=== PATIENT | female | born 1985 | race Caucasian/White ===

== ENCOUNTER 2019-01-10 11:46 | Outpatient (REF) | payer BC, SELFPAY | END 2019-01-10 12:06 | LOC: LBN 11:46 | PROVIDERS: PCP Nurse Practitioner Family; Visit Provider Nurse Practitioner Family | DX: J02.9 Acute pharyngitis, unspecified (principal) | CPT/HCPCS: 87077; 87070 ==

== ENCOUNTER 2019-10-05 03:17 | Outpatient (CLI) | payer BC, SELFPAY ==
[2019-10-05 11:01] LABS: Calculated LDL 116 mg/dL (<100); Cholesterol 165 mg/dL (<200); Glucose 86 mg/dL (74-106); HDL Cholesterol 41 mg/dL (40-60); Triglyceride 40 mg/dL (<150)
== END 2019-10-05 03:37 ==
PROVIDERS: PCP Nurse Practitioner Family; Visit Provider Nurse Practitioner Family
DX: Z13.1 Encounter for screening for diabetes mellitus (principal); Z13.220 Encounter for screening for lipoid disorders
CPT/HCPCS: 36415; 80061; 82947

== ENCOUNTER 2020-10-24 13:05 | Outpatient (REF) | payer BC, SELFPAY ==
--- NOTE | 2020-10-24 15:45 | PAPFT_PTH ---
PATIENT: Valorie Morrow LOC: [facility] U#:[id number] AGE/SX: 35/F ROOM: RE10/24/[address]: Ene Hanley APRN : 1985 BED: DIS: 10/24/2020 SPEC #: [id number] RECD: 10/25/20 13:14 STATUS: ALVARO RESincere #: [id number] BART: 10/24/20 15:[address]: Ene Hanley DEPT: [facility] Cytology RECD BY: Eufemia Oliver Tissues: 1 - CX/ENDOCX FOR PAP SMEARS Procedures: PAP THIN PREP/UVM Screening HPV DNA PROBE Comments: [id number]
== END 2020-10-24 13:06 | disposition home or self-care (01) ==
LOC: LBN 13:05
PROVIDERS: PCP Nurse Practitioner Family; Visit Provider Nurse Practitioner Family
DX: Z12.4 Encounter for screening for malignant neoplasm of cervix (principal); Z11.51 Encounter for screening for human papillomavirus (HPV); Z87.410 Personal history of cervical dysplasia
CPT/HCPCS: 88142; 87624

== ENCOUNTER 2021-07-24 03:51 | Outpatient (CLI) | payer BC, SELFPAY ==
[2021-07-24 11:08] LABS: Kit/Specimen SENT
[2021-07-24 11:15] LABS: Abs Immature Grans 0.04 10^3/uL (0.0-0.06); Absolute Basophil Count 0.05 10^3/uL (0.0-0.2); Absolute Eosinophil Count 0.04 10^3/uL (0.0-0.7); Absolute Lymphocyte Count 1.79 10^3/uL (1.2-3.4); Absolute Monocyte Count 0.65 10^3/uL (0.1-0.8); Absolute Neutrophil Count 7.43 10^3/uL (1.2-6.7); Basophils % 0.5; Eosinophils % 0.4; HCT 42.2 % (36.0-46.0); HGB 14.1 g/dL (11.2-15.7); Immature Grans % 0.4; Lymphocytes % 17.9; MCH 30.1 pg (27.0-33.0); MCHC 33.4 % (32.0-36.0); MCV 90 fL (80-95); MPV 8.9 fL (8.0-11.0); Monocytes % 6.5; Neutrophils % 74.3; Platelet Count 238 10^3/uL (130-400); RBC 4.68 10^6/uL (3.93-5.22); RDW 12.6 % (11.7-14.6); RDW-SD 41.2 fL
[2021-07-24 12:16] LABS: TSH (W/Ref FT4) 0.99 uIU/mL (0.36-3.74)
[2021-07-25 10:22] LABS: Hepatitis B Surface Ag Negative (Negative)
[2021-07-25 10:45] LABS: Hepatitis C Ab w Rflx HCV PCR Negative (Negative)
[2021-07-25 11:02] LABS: HIV-1/2 Ag & Ab Screen Negative (Negative)
[2021-07-25 11:09] LABS: Varicella IgG Antibody Positive (See Note)
[2021-07-25 11:15] LABS: Rubella IgG Ab (UVM) Positive (See Note)
[2021-07-26 23:17] LABS: Syphilis IgG w/Reflex Nonreactive (Nonreactive)
[2021-07-29 03:42] LABS: Specimen WB Whole Blood
[2021-08-04 17:57] LABS: Result Summary NEGATIVE; Specimen WB Whole Blood
== END 2021-07-24 03:52 | disposition home or self-care (01) ==
PROVIDERS: Advanced Practice Midwife; PCP Nurse Practitioner Family; Visit Provider Advanced Practice Midwife
DX: Z34.91 Encounter for supervision of normal pregnancy, unspecified, first trimester (principal); Z3A.12 12 weeks gestation of pregnancy
CPT/HCPCS: 36415; 81329; 86787; 86803; 86850; 86900; 86901; 87340; 87389; 81220; 84443; 85025; 86762; 86780

== ENCOUNTER 2021-07-24 19:37 | Outpatient (REF) | payer BC, SELFPAY ==
[2021-07-24 17:02] LABS: *AMPHETAMINES SCREEN URINE Negative (Negative); *BARBITURATES SCREEN URINE Negative (Negative); *BENZODIAZEPINES SCREEN URINE Negative (Negative); Cannabinoids THC Positive (Negative); Cocaine Screen,Urine Negative (Negative); METHADONE URINE SCREEN Negative (Negative); OPIATES URINE SCREEN Negative (Negative)
[2021-07-24 17:09] LABS: Tricyclic Antidepressants Negative (Negative)
[2021-07-25 14:22] LABS: Chlamydia Result Negative (Negative); GC Result Negative (Negative)
[2021-07-31 09:07] LABS: Buprenorphine Negative ng/mL (Cutoff: 5.0); Norbuprenorphine Negative ng/mL (Cutoff: 2.5)
== END 2021-07-24 19:38 | disposition home or self-care (01) ==
LOC: LBN 19:37
PROVIDERS: PCP Nurse Practitioner Family; Visit Provider Advanced Practice Midwife
DX: Z34.91 Encounter for supervision of normal pregnancy, unspecified, first trimester (principal); Z3A.12 12 weeks gestation of pregnancy
CPT/HCPCS: 80307; 87491; 87591; 87086

== ENCOUNTER 2021-08-21 01:47 | Outpatient (CLI) | payer BC, SELFPAY | END 2021-08-21 01:48 | disposition home or self-care (01) | LOC: LBO 01:47 | PROVIDERS: PCP Nurse Practitioner Family; Visit Provider Advanced Practice Midwife ==

== ENCOUNTER 2022-02-02 04:48 | Observation (INO) | payer BC, SELFPAY ==
[2022-02-02] VITALS (12 sets, daily range): BP systolic 128–147; BP diastolic 79–91; PULSE 77–99; RESP 12–20; TEMP 36.3–36.7
--- NOTE | 2022-02-02 07:41 | PDOC.NST_ITS ---
Date of service: 02/02/22 Time of Service: 07:00 NST Evaluation Reason for NST Reasons for Nonstress Test: OTHER, SEE COMMENT Reason for NST Other: noted minimal varibility and decels via doppler per chief information officer Hedy Gestational Age Gestational Age in Weeks and Days: 40 Weeks and 1Days Test and Monitor Explained Test/Monitor Explained: Test Explained Vital Signs Blood Pressure: 138/84 Pulse: 83 Temperature: 97.7 F NST Information Date on Monitor: 02/02/22 Time on Monitor: 05: Date off Monitor: 02/02/22 Time off Monitor: 07:00 Total Time on Monitor: 98 NST Interventions: None Contraction Frequency: irritability noted NST Evaluation Patient States Movement: Present FHR Baseline: 115 Variability: Moderate 6-25 bpm Accelerations: 15x15 Decelerations: None NST Results: Reactive Note NST Note NST Reviewed and Verified by: Randa Madera
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
--- NOTE | 2022-02-02 11:08 | W.PM.PROGNOT ---
Date of Service Date of service: 02/02/22 Time of Service: 11:08 Assessment and Plan Assessment and plan (1) Elevated BP without diagnosis of hypertension: Status: Acute Assessment and plan: BP taken after prolonged spontaneous FHT decel (resolved): 143/91 147/90 on retake; pt denies GLASGOW, RUQ pain or visual changes Will draw HDP labs (2) Vaginal bleeding during , antepartum: Status: Acute Assessment and plan: No further vaginal bleeding observed or reported by pt HDP labs pending Dr. Ricketts aware of tracing status Pt continues to decline GBS screening Will reassess for vaginal bleeding via speculum exam (3) 40 weeks gestation of : Status: Acute Subjective Subjective Patient reports: no new complaints Objective Last Vital Signs Temp 97.3 F L 02/02/22 07:42 Pulse 81 02/02/22 10:35 Resp 12 02/02/22 07:42 BP 147/90 H 02/02/22 10:35 Objective Narrative Objective Narrative: Category 1 tracing since 05, At 1030 FHT dropped to 60-70 bpm and remained for 2 minutes before returning to baseline Altogether 4 minute decel x1, resolved with maternal position change Has resumed category 1 status since then
[2022-02-02 11:19] LABS: HCT 43.7 % (36.0-46.0); HGB 14.8 g/dL (11.2-15.7); MCH 31.7 pg (27.0-33.0); MCHC 33.9 % (32.0-36.0); MCV 94 fL (80-95); Platelet Count 178 10^3/uL (130-400); RBC 4.67 10^6/uL (3.93-5.22); RDW-SD 44.2 fL; WBC 12.83 10^3/uL (4.4-10.8)
[2022-02-02 11:34] LABS: ALT 47 U/L (14-59); AST 37 U/L (15-37); Albumin 2.9 g/dL (3.4-5.0); Alkaline Phosphatase 133 U/L (46-116); Anion Gap 8.9 mmol/L (3-11); BUN 7 mg/dL (7-18); Bilirubin, Total 0.6 mg/dL (0.2-1.0); CO2 23.1 mmol/L (21.0-32.0); CREATININE 0.7 mg/dL (0.55-1.02); Calcium 9.5 mg/dL (8.5-10.1); Chloride 103 mmol/L (98-107); Estimated GFR 116.31 (mL/min/1.73m2); Glucose 101 mg/dL (74-106); Potassium 3.5 mmol/L (3.5-5.1); Sodium 135 mmol/L (136-145); Total Protein 6.9 g/dL (6.4-8.2)
[2022-02-02 11:43] LABS: COMMENT (LAB VIEW ONLY) 24.91 mg/dL; PROTEIN < 6.0 mg/dL
--- NOTE | 2022-02-02 16:28 | W.POCUS ---
Pocus Exam Limited OB Exam DATE OF EXAM:: 02/02/22 TIME OF EXAM:: 16:45 PROVIDER THAT PERFORMED THE STUDY: Randa Madera IS THIS A REPEAT EXAM DURING THIS ENCOUNTER: No Type of Exam: Pelvic OB Trans Abdominal (Transabdominal @ 40 weeks) REASON FOR EXAM: Vaginal Bleeding and other indication: deceleration during monitoring Exam Complete. DIFFERENTAL DIAGNOSES: QIAAN=10.0 SDP=4 cm
--- NOTE | 2022-02-02 17:12 | DSE_ITS ---
Date of service: 02/02/22 Time of Service: 17:12 DS: Diagnosis Discharge Diagnosis (1) Elevated BP without diagnosis of hypertension: Status: Acute (2) Vaginal bleeding during , antepartum: Status: Acute (3) 40 weeks gestation of : Status: Acute Discharge Plan Disposition Patient Disposition: Home Condition: Good Discharge Details Reason For Visit: vaginal bleeding at 40 wks Admit Date/Time: 02/02/22 04:48 Admit Provider: Hedy Ricketts Attending Provider: Hedy Ricketts Primary Care Provider: Ene Hanley Hospital Course Hospital Course: prolonged monitoring, lab work nml, no further bleeding, plan to transfer to [facility] for hospital plan Home Meds and New Rx's Prescriptions: No Action marijuana Inhalation Label Comments: for spastic diplegia prenat.vits,bhanu,roq-ztws-epvfv Tablet 1 tab PO DAILY Qty: 90 3RF Discharge Instructions Additional Instructions: Office will call to make paradichlorobenzene machine operator appt in [facility] for this Thursday, schedule next NST for this Thursday, call or return to center for any bleeding or unusual pain, or sx labor Stand Alone Forms: Center Observation Activity:: Activity as Tolerated Equipment/Supplies:: No Equipment Needed Diet:: Normal Diet Discharge Orders Discharge Orders: Discharge Order (Routine); Ordered 02/02/22 Ordered By: Randa Madera OB:DS Summary Contraception Discussed Contraception Discussed: No, Status at Discharge Functional status at discharge: independent ambulation Overall status at discharge: patient is back to baseline Mental Status: mental status grossly normal Speech and Movement: speech and movement normal and speech clear Mood: congruent mood Affect: normal affect Exam Physical Exam Vital signs: Temp Pulse Resp BP 98.1 F 98 H 20 130/82 02/02/22 16:18 02/02/22 16:18 02/02/22 16:18 02/02/22 16:18 Vital Signs Reviewed: Yes Constitutional Constitutional: no acute distress, average body habitus and cooperative HEENT Exam HEENT Exam: Normal Neck Exam Neck Exam: Normal Respiratory Exam Respiratory Exam: Normal Cardiovascular Exam Cardiovascular Exam: Normal Rectal Exam Rectal Exam: Normal Back/Spine/Pelvis Exam Back Exam: Normal Skin Exam Skin Exam: Normal Neurological Exam Neurological Exam: Normal Psychiatric Exam Psychiatric Exam: Normal (Pt accompanied by LM, opted to stay in the car in parking lot to wait for updates) PFSH All Active Problems (Updated 02/02/22 @ 11:12 by Randa Madera) Elevated BP without diagnosis of hypertension (Acute) Rh negative status during in third trimester (Acute) 40 weeks gestation of (Acute) Vaginal bleeding during , antepartum (Acute) Hyperlipidemia, unspecified (Acute) Medical marijuana use (Chronic) Spastic diplegia (Chronic) Related to premature (28 wks); mostly left leg but also right; residual difficulty with ambulating; s/p (L) heel cord lengthening (1999) Medical History (Updated 02/02/22 @ 11:12 by Randa Madera) NIDHI I (cervical intraepithelial neoplasia I) 01/24/2015 colposcopy; normal subsequent pap/HPV 01/04/2016, 04/03/2017 (see [facility] into chart) Positive test Surgical History S/P bunionectomy Left foot Tight heel cords, acquired, bilateral lengthening in 1999 other multiple tight ligaments Family History (Updated 07/24/21 @ 09:36 by Joseline Dickinson CNM) Father Alive and well Hypertension Hyperlipidemia Mother Alive and well Paternal Grandmother Lung cancer Smoker Cancer Maternal Grandfather Prostate cancer Cancer Paternal Grandfather Cancer Social History (Updated 01/01/22 @ 10:42 by Yi Palma RN) Smoking/Tobacco Use Status: Never Second Hand Exposure: Yes Smoking risk assessment performed?: Yes Alcohol Intake: never Substance use type: marijuana Adopted: No Caregiver/Support person: No Foster care: No Household members: spouse Housing: house Number of Children: 1 Communication Needs: None Education Level: master's degree Do you need help understanding health information?: Rarely 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 Pets and animals: Yes Pets and animals: cat(s) Sexually active: Yes Do you think of yourself as: straight/heterosexual Current gender identity: female What is your relationship status?: How often do you talk on the phone with friends or family?: once per week How often do you get together with friends or relatives?: twice per week How often do you attend adventist or zoroastrianism services?: decline to answer Do you belong to any clubs or organized social groups?: no Panel score (0-1 are the most socially isolated patients): 2 What type of physical activity do you participate in: walking Duration: 15-30 minutes/day Frequency: 1-2 times per week Yumiko/Jain: Tenriism Special yumiko needs: No Seatbelt use: always Helmet use: Yes Drive intox or ride w/intox electric lift truck driver: No Water heater temp set <120 deg: Yes Working smoke detector in home: Yes Fire extinguisher in home: Yes Carbon monox detector in home: Yes Firearms in home: No Do you feel safe at home: Yes Additional Social history: Master's in Education History History 1 Para 0 Hx # Term Pregnancies 0 Multiple births 0 Hx # Pregnancies 0 Ectopic pregnancies 0 AB induced 0 Hx Number of Living Children 0 AB spontaneous 0 DS: Data Vitals/I&O Vitals and I&O: Vital Signs Temperature 98.1 F 02/02/22 16:18 Pulse 98 H 02/02/22 16:18 Pulse Rhythm Regular 02/02/22 16:18 Respiratory Rate 20 02/02/22 16:18 Blood Pressure 130/82 02/02/22 16:18 Blood Pressure Mean 98 02/02/22 16:18 Oxygen Delivery Method Room Air 02/02/22 16:18 Oxygen Flow Rate 0 02/02/22 16:18 Pain Level 0 02/02/22 16:18 Intake & Output 02/01/22 02/02/22 02/02/22 23:59 11:59 23:59 Output Total 940 / 1740 800 / 1740 Balance -940 / -1740 -800 / -1740 Weight 141 lb 1.533 oz Output: Urine 940 / 1740 800 / 1740 Other: Urine Color Pale Data Completed and Pending Labs on day of discharge: Labs from last 24 hours 02/02/22 02/02/22 02/02/22 11:08 11:08 07:55 WBC 12.83 H RBC 4.67 Hgb 14.8 Hct 43.7 MCV 94 MCH 31.7 MCHC 33.9 RDW 13.0 Plt Count 178 MPV 10.0 Sodium 135 L Potassium 3.5 Chloride 103 Carbon Dioxide 23.1 Anion Gap 8.9 BUN 7 Creatinine 0.7 Est GFR (CKD-EPI 2020) 116.31 Glucose 101 Calcium 9.5 Total Bilirubin 0.6 AST 37 ALT 47 Alkaline Phosphatase 133 H Total Protein 6.9 Albumin 2.9 L Ur Random Creatinine 24.91 U Random Total Protein < 6.0 U Regina Prot/Creat Ratio
--- NOTE | 2022-02-02 17:33 | NUR.NOTE ---
Nursing Note: Assessment done pt denies ringing in the ears, visual disturbances, headache, reflexes 1+bracial and 2+patellar
== END 2022-02-02 17:15 | disposition home or self-care (01) ==
PROVIDERS: Advanced Practice Midwife; Admitting Provider Obstetrics & Gynecology; PCP Nurse Practitioner Family; Visit Provider Obstetrics & Gynecology
DX: O46.93 Antepartum hemorrhage, unspecified, third trimester (principal); Z3A.40 40 weeks gestation of pregnancy; O99.323 Drug use complicating pregnancy, third trimester; F12.90 Cannabis use, unspecified, uncomplicated; O36.8330 Maternal care for abnormalities of the fetal heart rate or rhythm, third trimester, not applicable or unspecified; R03.0 Elevated blood-pressure reading, without diagnosis of hypertension
CPT/HCPCS: 80053; 85027; 82565; 84156; G0378

== ENCOUNTER 2022-02-03 19:59 | Inpatient (IN) | payer BC, SELFPAY ==
[2022-02-03] VITALS (9 sets, daily range): BP systolic 135–169; BP diastolic 69–88; PULSE 107–131; RESP 20; TEMP 36.4
--- NOTE | 2022-02-03 20:59 | W.PM.OBHPL1 ---
Date of service: 02/03/22 Time of Service: 20:59 Assessment and Plan Assessment and plan (1) Uterine contractions: Status: Acute Assessment and plan: 1. Admit and do routine and pre-eclampsia labs 2. Discussed preferrence of this provider is to have IV access due to recent admission and observation for vaginal bleeding with unknown etiology, patient considering 3. Will support labor and NVD, water if patient prefers as FHR tracing is CAT I and she is not having active bleeding at this time. (2) Amniotic fluid leaking: Status: Acute Assessment and plan: 1. SROM at 1930 after contractions began at 1100 today, clear fluid, no odor. Plan to avoid VE as much as possible 2. Will monitor temperature hourly. MAGY OB-HPI Labor/Delivery History of Present Illness Reason for Visit: RULE OUT LABOR Chief Complaint: Uterine Contractions; Suspected Rupture of Membranes , Associated Signs and Symptoms of Suspected ROM: leaking large amounts of clear fluid mixed with normal bloody show. CAROLEE Calculator Estimated Delivery Date Method Current WG Current Estimate 02/01/22 LMP (Certain) 40w 2d Other Estimates 02/01/22 Ultrasound #1 40w 2d History of Present Expected Delivery Route/Plan - CNM FOB/ - Rony Morrow (first child) BG Declines GBS screen or ATB, accepts 48 hr obs for baby Specific Issues/Plan 1. Valorie and partner unvaccinated and decline vaccine 2. Considering home . 2a. Transfer back to [facility] midwifery service at 40 wks d/t vag bleed & borderline BP readings 3. Medical marijuana use 4. SMA/CF neg, cfDNA low prob x5, female fetus 5. Declines GBS screen Assessment: Other ( history from [facility] and [facility] is in chart. MAGY) Informed Consent Informed Consent: Other (discussed IV access, patient considering. NVD reviewed and waterbirth discussed, patient desires tub use. MAGY) Review of Systems All systems reviewed & are unremarkable except as noted in HPI and below PFSH All Active Problems (Updated 02/03/22 @ 21:11 by Joseline Dickinson CNM) Amniotic fluid leaking (Acute) Uterine contractions (Acute) Elevated BP without diagnosis of hypertension (Acute) Rh negative status during in third trimester (Acute) 40 weeks gestation of (Acute) Vaginal bleeding during , antepartum (Acute) Hyperlipidemia, unspecified (Acute) Medical marijuana use (Chronic) Spastic diplegia (Chronic) Related to premature (28 wks); mostly left leg but also right; residual difficulty with ambulating; s/p (L) heel cord lengthening (1999) Medical History NIDHI I (cervical intraepithelial neoplasia I) 01/24/2015 colposcopy; normal subsequent pap/HPV 01/04/2016, 04/03/2017 (see [facility] records scanned into chart) Positive test Surgical History S/P bunionectomy Left foot Tight heel cords, acquired, bilateral lengthening in 1999 other multiple tight ligaments Family History Father Alive and well Hypertension Hyperlipidemia Mother Alive and well Paternal Grandmother Lung cancer Smoker Cancer Maternal Grandfather Prostate cancer Cancer Paternal Grandfather Cancer Social History Smoking/Tobacco Use Status: Never Second Hand Exposure: Yes Smoking risk assessment performed?: Yes Alcohol Intake: never Substance use type: marijuana Adopted: No Caregiver/Support person: No Foster care: No Household members: spouse Housing: house Number of Children: 1 Communication Needs: None Education Level: master's degree Do you need help understanding health information?: Rarely 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 Pets and animals: Yes Pets and animals: cat(s) Sexually active: Yes Do you think of yourself as: straight/heterosexual Current gender identity: female What is your relationship status?: How often do you talk on the phone with friends or family?: once per week How often do you get together with friends or relatives?: twice per week How often do you attend scientology or taoism services?: decline to answer Do you belong to any clubs or organized social groups?: no Panel score (0-1 are the most socially isolated patients): 2 What type of physical activity do you participate in: walking Duration: 15-30 minutes/day Frequency: 1-2 times per week Yumiko/Restorationist: Scientology Special yumiko needs: No Seatbelt use: always Helmet use: Yes Drive intox or ride w/intox concrete mixer truck driver: No Water heater temp set <120 deg: Yes Working smoke detector in home: Yes Fire extinguisher in home: Yes Carbon monox detector in home: Yes Firearms in home: No Do you feel safe at home: Yes Additional Social history: Master's in Education History History 1 Para 0 Hx # Term Pregnancies 0 Multiple births 0 Hx # Pregnancies 0 Ectopic pregnancies 0 AB induced 0 Hx Number of Living Children 0 AB spontaneous 0 Meds Allergies and Home Medications Allergies Allergy/AdvReac Type Severity Reaction Status Date / Time cefaclor [From [facility]] Allergy Mild rash Verified 02/03/22 21:07 Home Medications Medication Instructions Recorded Confirmed Type marijuana inhalation PRN Pain 12/24/17 01/01/22 History prenat.vits,bhanu,[id number] 1 tab PO DAILY #90 tabs 06/27/21 02/03/22 Rx Exam Constitutional Constitutional: mild distress (working well with contractions, , Rony is supportive but anxious) and average body habitus Detailed Labor and Delivery Exam Alberto Score: Cervical Points Exam 0 1 2 3 Dilation Closed 1-2cm 3-4 cm 5-6cm Effacement 0-30% 40-50% 60-70% 80% Consistency Firm Medium Soft Station -3 -2 -1,0 +1,+2 Position Posterior Mid Anterior Contraction Frequency(min): 2 min Contraction Duration(sec): 40-60 sec Contraction Intensity: Moderate/Strong Comments: VE is deferred, patient was 1 cm on 02/02. She prefers to avoid VE due to ROM and her desire to avoid antibiotics despite not knowing GBS status. She declines GBS testing and IV antibiotics, is aware of GBS disease of and its risks. KH Fetus A Heart Rate Baseline: 145 Monitor Accelerations: 10 X 10 Monitor Decelerations: None Variability: Moderate (6-25 BPM) Categories: Category I Est. Weight: 7 lb Date of Membrane Rupture: 02/03/22 Time of Membrane Rupture: 19:30 HEENT Exam HEENT Exam: Normal Neck Exam Neck Exam: Normal (visual exam is normal) Chest/Brest/Axilla Exam Chest Exam: Normal Breast Exam Breast Exam: Not Done Respiratory Exam Respiratory Exam: Normal Cardiovascular Exam Cardiovascular Exam: Normal (awaiting inital BP at this time, due to recent elevations will draw Pre-eclampsia labs) Abdominal Exam Abdominal Exam: Normal (gravid, size equals dates, fundus is soft between contractions and non tender) Exam Exam: Normal (leaking clear fluid and small amount of bloody show, VE deferred at this time per patient request) Extremities Exam Extremities Exam: Abnormal (patient has spastic diplegia which causes extremities to be tight and gait to be affected) Back/Spine/Pelvis Exam Back Exam: Not Done Pelvis Adequate: Yes (per initial OB visit) Skin Exam Skin Exam: Normal Neurological Exam Neurological Exam: Normal (spastic diplegia noted) Psychiatric Exam Psychiatric Exam: Normal Results Results Group Beta Strep: Not Done (patient declines testing or antibiotics as prophylaxis) Blood Type: O- Rubella Status: Immune Varicella Immunity: Immune Lab Results: Panorama low risk results, female gender, GC CT negative, Hep B/C and HIV neg, Syphilis neg Risk Assessment Risk for Shoulder Dystocia Historical/Initial OB: NEGATIVE FOR: Pelvic Abnormality, Pre- BMI>30, Previous Shoulder Dystocia or Previous Macrosomia 40 Weeks: NEGATIVE FOR: EFW> 4500 gms, Maternal Weight Gain >40lb or Post Dates Date/Initial: 07/24/21 Delivery Plan @ 40 wks: NVD. BHATTI Risk for Pre-Eclampsia Yes, if one or more: NEGATIVE FOR: Hx Pre-E/Gest HTN, Chronic HTN, Multiple Gestation, Pre-gestational DM, Renal Disease, Systemic Lupus or APA Syndrome Yes, if 2 or more: POSITIVE FOR: Nulliparity; NEGATIVE FOR: Age>= 35 yrs, >10yr btwn pregnancies, BMI>30, ethinicty, Mother/Sister w/ Pre-E or Previous IUGR Risk for Post- Hemorrhage Initial: NEGATIVE FOR: Multiple Gestation, Previous PPH, Known Clotting Deficiency, Grand Multiparity or Anticoagulation At Risk?: Yes (recent bleeding episode of unknown etiology, IV access requested ) Date/Initials: 02/03/22 Risks Reviewed Risks Reviewed Upon Admission: Yes
[2022-02-03 21:22] LABS: HCT 42.5 % (36.0-46.0); HGB 14.6 g/dL (11.2-15.7); MCH 32.1 pg (27.0-33.0); MCHC 34.4 % (32.0-36.0); MCV 93 fL (80-95); Platelet Count 210 10^3/uL (130-400); RBC 4.55 10^6/uL (3.93-5.22); RDW-SD 44.7 fL; WBC 16.16 10^3/uL (4.4-10.8)
[2022-02-03 21:35] LABS: LDH 143 U/L (81-234); Uric Acid 4.5 mg/dL (2.6-6.0)
[2022-02-03 21:36] LABS: ALT 40 U/L (14-59); AST 34 U/L (15-37); Alkaline Phosphatase 134 U/L (46-116); Anion Gap 10.6 mmol/L (3-11); BUN 11 mg/dL (7-18); Bilirubin, Total 0.6 mg/dL (0.2-1.0); CO2 21.4 mmol/L (21.0-32.0); CREATININE 0.7 mg/dL (0.55-1.02); Calcium 9.3 mg/dL (8.5-10.1); Chloride 101 mmol/L (98-107); Estimated GFR 116.31 (mL/min/1.73m2); Glucose 119 mg/dL (74-106); Potassium 3.5 mmol/L (3.5-5.1); Sodium 133 mmol/L (136-145); Total Protein 7.1 g/dL (6.4-8.2)
--- NOTE | 2022-02-03 23:29 | OBVDS_ITS ---
Date of service: 02/03/22 Time of Service: 23:29 OB Labor/ Delivery Information Baby A Delivery Delivery Method: Spontaneaous Presentation: Cephalic Cephalic Position: Vertex Vertex Position: Left Occipital Anterior Cord Description-Baby A: 3 Vessels and Clamped/Cut Estimated Blood Loss: 300 Delivery Outcome: Liveborn Complications: none Note: Valorie presented in active labor as noted by regular strong contractions and maternal response to contractions. Venancio came to deliver at [facility] after having seen Hedy Goldstein CPM for most of her due to vaginal bleeding on Friday 02/02 which resolved spontaneously. She began having regular contractions 02/03 at 1100 and had SROM for clear fluid at 1930 on 02/03. She declined vaginal examination on arrival sighting her choice to not receive GBS testing or prophylaxis and avoiding exam decreased her risks to her baby She agreed to initial EFM tracing and after a 20-30 minute tracing which was CAT I she requested to move to birthing tub due to involuntary urge to push. She continued to have excellent expulsive efforts over the next hour and progressed to . FHT's remained 140's throughout. Baby girl Keya delivered DOROTHEA over intact perineum at 2244. She was brought up so her face was above water and rested on maternal legs while awaiting for cord to cease pulsing. Cord was double clamped and cut by FLAVIO Knott and baby was moved to radiant warmer while Valorie was transferred out of tub to bed. Placenta delivered intact via galaviz mechanism at 2315 with gentle traction and uterine massage. EBL 300cc. Perineum is intact, there is slight abrasion on labia bilaterally but they are hemostatic and left unrepaired. Baby had 9/9 scores. She is attempting to breast feed. Venancio are aware that due to unknown GBS status and no GBS prophylaxis it is likely that they will be staying 48-72 hours for assessments. Positive family bonding is noted. Unknown contraception plan at this time. VS area stable. Baby's weight 6lb 10.88oz. Expect normal PP course with likely having PP follow up with her home laboratory aide. Providers Nurse Car Tracer: Joseline Dickinson Nurse: Loren Olmstead Nurse: Jessica Benjamin Other: Home Car Tracer Hedy Oakes in attendance Labor/Delivery Information Number of Babies in Womb: 1 Steroids Given: None Reason Steroids Not Administered: N/A Group Beta Strep: Not Done Antibiotics Administered: No Rubella Status: Immune Blood Type: O- Varicella Immunity: Immune Maternal Complications: None Shoulder Dystocia: No Stages of Labor Onset of Labor Date: 02/03/22 Onset of Labor Time: 11:00 Complete Dilatation Date: 02/03/22 Complete Dilatation Time: 21:50 Labor - Stage 1 Duration: 10 hours and 50 minutes ROM Baby A: 02/03/22 ROM Baby A: 19:30 ROM Total Time- Baby A: [id number] Infant Delivery Date-Baby A: 02/03/22 Infant Delivery Time-Baby A: 22:44 Labor Stage 2 Duration: 54 minutes Placenta Delivery Date-Baby A: 02/03/22 Placenta Delivery Time-Baby A: 23:15 Labor-Stage 3 Duration: 31 minutes Total Length of Labor-Baby A: 11 hours and 44 minutes Placenta Cultured: No Placenta Status: Delivered Baby A Gender: Female Gestational Status: Term (39-41.6 wks) Gestational Age in Weeks/Days: 40 Weeks and 2 Days Score-1 Minute Interval(Baby A) Heart Rate-1 minute: 100 BPM or Greater Respiratory Effort- 1 minute: Spontaneous/Strong Cry Muscle Tone-1 minute: Active Movement Reflex Response-1 minute: Prompt Response Color-1 minute: Bluish Hands or Feet Total Score-1 minute: 9 Score-5 Minute Interval(Baby A) Heart Rate- 5 minute: 100 BPM or Greater Respiratory Effort-5 minute: Spontaneous/Strong Cry Muscle Tone-5 minute: Active Movement Reflex Response-5 minute: Prompt Response Color-5 minute: Bluish Hands or Feet Total Score- 5 minute: 9
[2022-02-04] VITALS (7 sets, daily range): BP systolic 132–164; BP diastolic 72–90; PULSE 85–113; RESP 16–18; TEMP 36.7
--- NOTE | 2022-02-04 08:48 | NUR.NOTE ---
Hedy home detective homicide squad at bedside to discuss MD recommendations with patient and FOBNursing Note:
[2022-02-04] MEDS: Hamamelis Leaf/Glycerin 100 EACH BOX PR (09:34)
[2022-02-04] MEDS: Ibuprofen 600 MG TAB PO (09:55)
--- NOTE | 2022-02-04 10:05 | OBPPV_ITS ---
Date of service: 02/04/22 Time of Service: 07:10 Assessment and Plan Assessment and plan (1) care following vaginal delivery: Status: Acute Assessment and plan: 1. Continue present management 2. Will reassess in 24 hours or prn, encouraged stay for 48 hour evaluation due to GBS unknown status and now baby having + Carmen test result. MAGY (2) Lactating mother: Status: Acute Assessment and plan: 1. Continue present management. MAGY (3) Elevated BP without diagnosis of hypertension: Status: Acute Assessment and plan: 1. Elevated BP over night of 157/79 with normal lab assessment for Pre-eclampsia and no reported signs or symptoms of pre-eclampsia, patient has deferred VS this morning due to her stress related to potential need to stay longer than she wishes due to her unknown GBS status and Carmen + status of baby affecting her care. Will reassess when allowed. MAGY Subjective Subjective Interval history: Home Energy Inspector rounded on patient who is doing well but was hopeful that Pediatrics would allow her to have short interval discharge with her Home M Exam Physical Exam Vital signs: Temp Pulse Resp BP 98.1 F 86 16 157/79 H 02/04/22 04:59 02/04/22 04:59 02/04/22 04:59 02/04/22 04:59 Vital Signs Reviewed: Yes Narrative: Morning VS are pending as patient has requested a period of no interruptions due to concern for potential need to stay longer than she had hoped for due to baby having + Carmen test today. Denies any signs of pre-eclampsia. Constitutional Constitutional: no acute distress, mild distress (over concern for longer stay and baby's well being), average body habitus and cooperative HEENT Exam HEENT Exam: Normal Neck Exam Neck Exam: Normal (normal visual inspection) Respiratory Exam Respiratory Exam: Normal Cardiovascular Exam Cardiovascular Exam: Normal Abdominal Exam Abdomen: Other (normal exam) Fundal Exam Fundus: Below Umbilicus and Firm Comment: small lochia noted. Rectal Exam Rectal Exam: Not Done Exam Perineum: Intact and Normal Extremities Exam Extremity Exam: Normal (denies calf tenderness) and Full ROM Back/Spine/Pelvis Exam Back Exam: Normal Skin Exam Skin Exam: Normal Neurological Exam Neurological Exam: Normal Psychiatric Exam Psychiatric Exam: Normal Results Hemoglobin/Hematocrit: Hgb 14.6 g/dL (11.2-15.7) 02/03/22 21:10 Hct 42.5 % (36.0-46.0) 02/03/22 21:10 Abnormal Lab Findings: Abnormal Labs 02/03/22 02/03/22 21:10 21:10 WBC 16.16 H Sodium 133 L Glucose 119 H Alkaline Phosphatase 134 H Albumin 3.0 L
[2022-02-05 07:40] VITALS: BP 133/84; PULSE 89; RESP 14; TEMP 36.3
--- NOTE | 2022-02-05 10:00 | W.PM.OBDISCH ---
Date of service: 02/05/22 Time of Service: 10:01 DS: Diagnosis Discharge Diagnosis (1) care following vaginal delivery: Status: Acute Asessment and Plan: Valorie is very anxious to go home at 36 hours post . She declines serum bilirubin as recommended by Pediatrci providers. She is caring for baby independently. Pain is managed well with oral analgesics. Voiding without difficulty. well. A - stable mother and baby , Post day 2 P - Discharge to home. Routine post instructions. Follow up for post partume care with her hull molder. (2) Lactating mother: Status: Acute Asessment and Plan: Irena Yañez visited Valorie and provided instructions (3) Elevated BP without diagnosis of hypertension: Status: Acute Discharge Plan Disposition Patient Disposition: Home Condition: Good Discharge Details Reason For Visit: Labor at Term Admit Date/Time: 02/03/22 20:56 Admit Provider: Joseline Dickinson Attending Provider: Joseline Dickinson Primary Care Provider: Ene Hanley Home Meds and New Rx's Prescriptions: No Action marijuana Inhalation PRN (Reason: Pain) Label Comments: for spastic diplegia prenat.vits,bhanu,[id number] Tablet 1 tab PO DAILY Qty: 90 3RF Discharge Instructions Stand Alone Forms: BC Instructions, BC Post Vaginal Deliver Activity:: Activity as Tolerated Equipment/Supplies:: No Equipment Needed Diet:: As Tolerated Discharge Orders Discharge Orders: Discharge Order (Routine); Ordered 02/05/22 Ordered By: Joseline Wilks OB:DS Summary Summary Vaginal Delivery Method: Spontaneaous Episiotomy Description: None Laceration Description: None Laceration Extension: N/A Contraception Discussed Contraception Discussed: No (will disciss with her hull molder), Zoe Infant Gender-Baby A: Female weight: 6 lb 10.88 oz Status at Discharge Functional status at discharge: independent ambulation Overall status at discharge: patient is back to baseline Mental Status: mental status grossly normal Speech and Movement: speech and movement normal Mood: congruent mood Affect: normal affect Exam Physical Exam Vital signs: Temp Pulse Resp BP 97.3 F L 89 14 133/84 02/05/22 07:40 02/05/22 07:40 02/05/22 07:40 02/05/22 07:40 Respiratory Exam Respiratory Exam: Normal Cardiovascular Exam Cardiovascular Exam: Normal Fundal Exam Fundus: Below Umbilicus and Firm Extremities Exam Extremity Exam: Normal Skin Exam Skin Exam: Normal Psychiatric Exam Psychiatric Exam: Normal PFSH All Active Problems (Updated 02/04/22 @ 10:09 by Joseline Dickinson CNM) Lactating mother (Acute) care following vaginal delivery (Acute) Elevated BP without diagnosis of hypertension (Acute) Hyperlipidemia, unspecified (Acute) Medical marijuana use (Chronic) Spastic diplegia (Chronic) Related to premature (28 wks); mostly left leg but also right; residual difficulty with ambulating; s/p (L) heel cord lengthening (1999) Medical History (Updated 02/04/22 @ 10:09 by Joseline Dickinson CNM) 40 weeks gestation of Amniotic fluid leaking NIDHI I (cervical intraepithelial neoplasia I) 01/24/2015 colposcopy; normal subsequent pap/HPV 01/04/2016, 04/03/2017 (see [facility] scanned into chart) Positive test Rh negative status during in third trimester Uterine contractions Vaginal bleeding during , antepartum Surgical History S/P bunionectomy Left foot Tight heel cords, acquired, bilateral lengthening in 1999 other multiple tight ligaments Family History Father Alive and well Hypertension Hyperlipidemia Mother Alive and well Paternal Grandmother Lung cancer Smoker Cancer Maternal Grandfather Prostate cancer Cancer Paternal Grandfather Cancer Social History Smoking/Tobacco Use Status: Never Second Hand Exposure: Yes Smoking risk assessment performed?: Yes Alcohol Intake: never Substance use type: marijuana Adopted: No Caregiver/Support person: No Foster care: No Household members: spouse Housing: house Number of Children: 1 Communication Needs: None Education Level: master's degree Do you need help understanding health information?: Rarely 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 Pets and animals: Yes Pets and animals: cat(s) Sexually active: Yes Do you think of yourself as: straight/heterosexual Current gender identity: female What is your relationship status?: How often do you talk on the phone with friends or family?: once per week How often do you get together with friends or relatives?: twice per week How often do you attend denominational or episcopalian services?: decline to answer Do you belong to any clubs or organized social groups?: no Panel score (0-1 are the most socially isolated patients): 2 What type of physical activity do you participate in: walking Duration: 15-30 minutes/day Frequency: 1-2 times per week Yumiko/Taoist: Yarsanism Special yumiko needs: No Seatbelt use: always Helmet use: Yes Drive intox or ride w/intox armored car guard and driver: No Water heater temp set <120 deg: Yes Working smoke detector in home: Yes Fire extinguisher in home: Yes Carbon monox detector in home: Yes Firearms in home: No Do you feel safe at home: Yes Do you feel safe in your relationship?: Yes Additional Social history: Master's in Education History History 1 Para 0 Hx # Term Pregnancies 0 Multiple births 0 Hx # Pregnancies 0 Ectopic pregnancies 0 AB induced 0 Hx Number of Living Children 0 AB spontaneous 0 DS: Data Vitals/I&O Vitals and I&O: Vital Signs Temperature 97.3 F L 02/05/22 07:40 Temperature Source Oral 02/03/22 21:45 Pulse 89 02/05/22 07:40 Pulse Rhythm Regular 02/05/22 07:40 Respiratory Rate 14 02/05/22 07:40 Respiratory Depth Normal 02/04/22 10:23 Blood Pressure 133/84 02/05/22 07:40 Blood Pressure Mean 100 02/05/22 07:40 Oxygen Delivery Method Room Air 02/03/22 21:45 Oxygen Flow Rate 0 02/03/22 21:45 Pain Level 0 02/05/22 07:40 Comment 02/03/22 21:45 Intake & Output 02/04/22 02/04/22 02/05/22 11:59 23:59 11:59 Output Total 300 / 300 Balance -300 / -300 Output: Blood 300 / 300 Other: Urine Color Yellow
== END 2022-02-05 10:50 | disposition home or self-care (01) | DRG 806 ==
PROVIDERS: Admitting Provider Advanced Practice Midwife; PCP Nurse Practitioner Family; Visit Provider Advanced Practice Midwife
DX: O42.92 Full-term premature rupture of membranes, unspecified as to length of time between rupture and onset of labor (principal); G80.1 Spastic diplegic cerebral palsy; Z37.0 Single live birth; O99.354 Diseases of the nervous system complicating childbirth; O99.324 Drug use complicating childbirth; O36.0930 Maternal care for other rhesus isoimmunization, third trimester, not applicable or unspecified; E78.5 Hyperlipidemia, unspecified; F12.90 Cannabis use, unspecified, uncomplicated; O75.89 Other specified complications of labor and delivery; O71.82 Other specified trauma to perineum and vulva; Z3A.40 40 weeks gestation of pregnancy
CPT/HCPCS: 36415; 80053; 85027; 85461; 86850; 86900; 86901; 87635; 90384; 83615; 84550; 86870; J2790

== ENCOUNTER 2023-12-09 05:03 | Outpatient (CLI) | payer BC, SELFPAY ==
[2023-12-09 09:17] LABS: HCT 41.7 % (36.0-46.0); HGB 13.8 g/dL (11.2-15.7); MCH 30.4 pg (27.0-33.0); MCHC 33.1 % (32.0-36.0); MCV 92 fL (80-95); MPV 8.9 fL (8.0-11.0); Platelet Count 232 10^3/uL (130-400); RBC 4.54 10^6/uL (3.93-5.22); RDW 12.6 % (11.7-14.6); RDW-SD 42.5 fL; WBC 5.35 10^3/uL (4.4-10.8)
[2023-12-09 10:12] LABS: ALT 23 U/L (14-59); AST 17 U/L (15-37); Albumin 3.7 g/dL (3.4-5.0); Alkaline Phosphatase 73 U/L (46-116); Anion Gap 8.4 mmol/L (3-11); BUN 21 mg/dL (7-18); Bilirubin, Total 0.68 mg/dL (0.2-1.0); CO2 27.6 mmol/L (21.0-32.0); CREATININE 0.8 mg/dL (0.55-1.02); Calcium 9.3 mg/dL (8.5-10.1); Chloride 107 mmol/L (98-107); Estimated GFR 97.87 (mL/min/1.73m2); Glucose 87 mg/dL (74-106); Potassium 3.9 mmol/L (3.5-5.1); Sodium 143 mmol/L (136-145); TSH (W/Ref FT4) 1.73 uIU/mL (0.36-3.74); Total Protein 7.4 g/dL (6.4-8.2)
[2023-12-09 10:47] LABS: Calculated LDL 102 mg/dL (<100); Cholesterol 173 mg/dL (<200); HDL Cholesterol 63 mg/dL (40-60); Triglyceride 44 mg/dL (<150)
== END 2023-12-09 05:04 | disposition home or self-care (01) ==
LOC: LBO 05:03
PROVIDERS: PCP Nurse Practitioner Family; Referring Provider Nurse Practitioner Family; Visit Provider Nurse Practitioner Family
DX: E78.5 Hyperlipidemia, unspecified (principal); R23.3 Spontaneous ecchymoses; E87.1 Hypo-osmolality and hyponatremia; R53.83 Other fatigue
CPT/HCPCS: 36415; 80053; 80061; 85027; 84443

== ENCOUNTER 2024-09-07 01:58 | Outpatient (CLI) | payer BC, SELFPAY ==
--- NOTE | 2024-09-07 07:15 | DI.RAD_ITS ---
Exam(s) XR FOOT LT COMPLETE EXAM: XR FOOT LT COMPLETE CLINICAL HISTORY: pain, surgery 15 yrs ago,s/p bunionectomy,[id number]. TECHNIQUE: 2D digital imaging was performed of the left foot. Three images were obtained. AP, oblique and lateral views were obtained. COMPARISON: No exams were available for comparison FINDINGS: BONES: No acute fracture is present. No bony destructive lesion is seen. There are surgical screws seen in the 1st metatarsal. JOINTS: No dislocation present. There is mild medial subluxation of the proximal phalanx of the great toe relative to the 1st metatarsal. The joint spaces are otherwise well maintained. SOFT TISSUE: Normal. IMPRESSION: Postsurgical changes involving the great toe. No acute fracture. DATA REPOSITORY: RADIATION DOSE DELIVERED:
== END 2024-09-07 02:18 ==
LOC: DI 01:58
PROVIDERS: PCP Nurse Practitioner Family; Visit Provider Nurse Practitioner Family
DX: Z98.890 Other specified postprocedural states (principal)
CPT/HCPCS: 73630